=== PATIENT | female | born 1955 | race Caucasian/White ===

== ENCOUNTER 2019-04-05 12:57 | Inpatient (IN) ==
[2019-04-05 14:03] LABS: Hematocrit 37.6 % (37.0-47.0); Hemoglobin 11.6 gm/dL (12.5-16.0); Mean Cell Volume 116.8 fl (78-100); Mean Corpuscular Hgb Conc 30.9 g/dl (32-36); Mean Platelet Volume 10.4 fl (8-12.5); Neutrophil # 9.2 K/mm3 (1.3-6.0); Neutrophil % 79.6 % (42-75.0); Platelet Count 215 K/mm3 (150-450); Red Blood Count 3.22 M/mm3 (4.2-5.4); Red Cell Distribution Width 17.8 % (11.5-14.0); White Blood Count 11.6 K/mm3 (4.0-10.5)
[2019-04-05 14:51] LABS: Urine Appearance Slightly Cloudy (CLEAR); Urine Bacteria 1+; Urine Bilirubin 1 mg/dl (NEGATIVE); Urine Blood Negative /ul (NEGATIVE); Urine Color Dark Yellow; Urine Ketone 5 mg/dL (NEGATIVE); Urine Nitrite Negative (NEGATIVE); Urine Protein 15 mg/dL (NEGATIVE); Urine RBC None Seen /hpf (0-5); Urine Urobilinogen Normal (NORMAL); Urine WBC None Seen /hpf (0-5); Urine pH 5.5 pH (5.0-7.0)
[2019-04-05 14:52] LABS: Urine Hyaline Cast 0-5 /LPF
--- NOTE | 2019-04-05 15:20 | ERNOTE ---
Medical Problem HPI - Narrative Date of Service: 04/05/19 - General Chief Complaint: General Assessment Time Seen by Provider: 04/05/19 13:24 Source: patient Exam Limitations: no limitations - Immun/Allergies/Home Medications Immunizations: IMMUNIZATION HX Immunizations Up to Date Yes History of Influenza Vaccine No Hx Pneumococcal Vaccination No Allergies/Adverse Reactions: Allergies morphine Allergy (Verified 03/30/19 12:34) Penicillins Allergy (Verified 03/30/19 12:34) Home Medications: HOME MEDICATIONS ALPRAZolam [Xanax] 0.5 mg PO TID 05/02/15 [Last Taken Unknown] Omeprazole [Prilosec] 20 mg PO DAILY 05/02/15 [Last Taken Unknown] FLUoxetine HCL [Prozac] 40 mg PO DAILY 03/02/18 [Last Taken Unknown] Cyanocobalamin (Vitamin B-12) [Vitamin B12] 2,500 mcg PO DAILY 08/31/18 [Last Taken Unknown] Ferrous Sulfate [Iron] 325 mg PO DAILY 08/31/18 [Last Taken Unknown] fentaNYL [Fentanyl] 15 mcg TD Q48H 08/31/18 [Last Taken Unknown] oxyCODONE HCL [Oxycodone] 10 mg PO Q4H PRN 08/31/18 [Last Taken Unknown] Ondansetron [Zofran Odt] 8 mg PO Q4H PRN 03/30/19 [Last Taken Unknown] Prochlorperazine Maleate [Compazine] 10 mg PO TID 03/30/19 [Last Taken Unknown] - History of Present History Narrative: Patient presents to the ED with progressive generalized weakness and not eating or drinking much. Generalized weakness. Decreased urination. Feeling dehydrated. Had a head injury 2 days ago. No CP or SOB. Her stomach hudson but this is not acute. Timing: constant, getting worse Modifying Factors - (Improves): Present: other - nothing Modifying Factors - (Worsens): Present: other - nothing Review of Systems - Review of Systems Constitutional: Absent: fever Respiratory: Absent: shortness of breath Cardiology: Absent: chest pain Gastrointestinal/Abdominal: Present: See HPI Genitourinary: Present: decreased urinary output Neurological: Present: weakness Medical History (Updated 03/30/19 @ 16:39 by Rajesh Keenan MD) Depression History of chemotherapy PleurX Stomach cancer power port placement Surgical History: Surgical History (Updated 09/29/18 @ 18:25 by Nancy Wagoner RN) Hx of gastric bypass Hx of tubal ligation picc line placement. Family History: Family History (Updated 09/29/18 @ 18:25 by Nancy Wagoner RN) Other No pertinent family history Social History: Preferred Language [place] Smoking Status Current every day smoker Have you smoked in the past 12 Yes months Do you dip or chew tobacco No Alcohol Use none Drug Use none No Social History Section defined Physical Exam - Physical Exam General Appearance: Present: alert, other - chronically ill appearing Head Exam: Present: other - abrasion back of head. No otorrhea or rhinorrhea Eye Exam: Normal inspection: bilateral, PERRL: bilateral Ears, Nose, Throat: Present: dry mucous membranes Neck: Present: normal inspection, nontender Respiratory: Present: no respiratory distress, normal breath sounds, no accessory muscle use Cardiovascular/Chest: Present: normal peripheral pulses, tachycardia Gastrointestinal/Abdominal: Present: normal bowel sounds, nondistended, soft, other - mild epigastric tenderness Extremity Exam: Present: extremity edema Neurological Exam: Present: other - generalized weakness noted, no acute unilateral focal motor or sensory deficits Skin Exam: Present: normal color, warm/dry Progress - Results and Orders Patient's Lab Results:: I have reviewed the patient's lab results. - Vital Signs Patient's Vital Signs:: I have reviewed the patient's vital signs. Vital Signs: Vital Signs 04/05/19 13:04 Temperature 37 C Pulse Rate 122 H Respiratory Rate 18 Blood Pressure 80/47 L - X-Ray X-Ray #1 X-Ray: chest Interpretation: Interp. by me X-ray Comments: I reviewed official radiology report - CT/Ultrasound CT/Ultrasound Narrative: I reviewed official radiology report for CT head - Progress/Reassessment Chief Complaint: General Assessment Progress Note-Subjective: 04/05/19 16:40 Patient given IV fluids, IV dextrose. She is too weak to go home. They are thinking about goals of care. She is amenable to admission. Hyponatremia and dehydration. D/W Dr Kirkpatrick who will admit. Departure Clinical Impression: Dehydration, Head injury, Generalized weakness, Hyponatremia - Departure Disposition: Still a patient Condition: Fair
[2019-04-05] MEDS ORDERED: LORazepam 2 MG/ML DISP.SYRIN IV ONE (15:48)
[2019-04-05 16:31] LABS: Albumin * 0.7 gm/dl (3.4-5.0); Anion Gap 14.6 mmol/L (6.8-13.8); BUN/Creatinine Ratio 18.4 (9.0-21.6); Bilirubin, Total 0.8 mg/dL (0.0-1.1); Ca. Corrected For Albumin 9.4 mg/dL (8.4-10.2); Calcium * 7.1 mg/dL (7.9-10.9); Carbon Dioxide 21.6 mmol/L (24-32.6); Potassium 5.2 mmol/L (3.4-4.6)
[2019-04-05] MEDS ORDERED: DEXTROSE 50%-WATER 50 ML SYRG IV ONE (16:36)
[2019-04-05] MEDS ORDERED: NORMAL SALINE 1,000 ML IV ONE (16:39)
--- NOTE | 2019-04-05 17:14 | HP ---
Chief Complaint - Chief Complaint Date of Service: 04/05/19 Time of Service: 17:14 Chief Complaint: weakness History of Present Illness: Patient with past medical history of gastric cancer undergoing chemotherapy at [facility] [place] presented with a 3-day history of increased weakness. She was diagnosed in June of last year, and has been undergoing chemo therapy. Her previous chemotherapy regimen was not working, and was ávlarez ed within the last few weeks. She also was having uncontrolled nausea, and a scopolamine patch was recently started, which has led to some confusion. Her p.o. intake is been very poor. She wants to take a break from chemotherapy. Her sister also reports Eliquis was recently started for a possible blood clot in her lung. Her performs paracentesis at home via a drain in her side. While in the ED, she expressed wishes to hold off on any treatment, and the hospice team met with her. They would like to think more about hospice before actually pursuing hospice benefits. At the time of my exam, her blood pressure is in the 70s over 40s, and she is tachycardic to the 130s. She is having 3+ bilateral lower extremity edema. Discussed the severity of the situation, and she does not want to be resuscitated should her heart stop. Medical History (Updated 04/05/19 @ 17:14 by Senait Kirkpatrick DO) Depression History of chemotherapy PleurX Stomach cancer power port placement Surgical History: Surgical History (Updated 04/05/19 @ 17:14 by Senait Kirkpatrick DO) Hx of gastric bypass Hx of tubal ligation picc line placement. Family History: Family History (Updated 04/05/19 @ 17:25 by Lisa Thompson RN) Mother Hypertension Other No pertinent family history mother Social History: Preferred Language Taj[place] Smoking Status Current every day smoker Have you smoked in the past 12 Yes months Do you dip or chew tobacco No Alcohol Use none Drug Use none No Social History Section defined Review Of Systems (GEN) - Review of Systems Generalized/Overall Review: Present: Weakness, Malaise. Absent: Fever Respiratory: Present: Shortness of Breath - intermittent. Absent: Cough Cardiac: Present: Edema. Absent: Chest Pain Abdominal: Present: Nausea Genitourinary: Present: No Symptoms Reported Skin: Present: No Symptoms Reported Immunizations: IMMUNIZATION HX Immunizations Up to Date Yes History of Influenza Vaccine No Hx Pneumococcal Vaccination No Allergies/Adverse Reactions: Allergies Allergy/AdvReac Type Severity Reaction Status Date / Time morphine Allergy Verified 03/30/19 12:34 Penicillins Allergy Verified 03/30/19 12:34 Home Medications: HOME MEDICATIONS ALPRAZolam [Xanax] 0.5 mg PO TID 05/02/15 [Last Taken Unknown] Omeprazole [Prilosec] 20 mg PO DAILY 05/02/15 [Last Taken Unknown] FLUoxetine HCL [Prozac] 40 mg PO DAILY 03/02/18 [Last Taken Unknown] Cyanocobalamin (Vitamin B-12) [Vitamin B12] 2,500 mcg PO DAILY 08/31/18 [Last Taken Unknown] Ferrous Sulfate [Iron] 325 mg PO DAILY 08/31/18 [Last Taken Unknown] fentaNYL [Fentanyl] 15 mcg TD Q48H 08/31/18 [Last Taken Unknown] oxyCODONE HCL [Oxycodone] 10 mg PO Q4H PRN 08/31/18 [Last Taken Unknown] Ondansetron [Zofran Odt] 8 mg PO Q4H PRN 03/30/19 [Last Taken Unknown] Prochlorperazine Maleate [Compazine] 10 mg PO TID 03/30/19 [Last Taken Unknown] Exam - Exam Vital Signs: Vital Signs - Last Taken Temp 37 C 04/05/19 13:04 Pulse 122 H 04/05/19 13:04 Resp 18 04/05/19 13:04 BP 80/47 L 04/05/19 13:04 Constitutional: Present: Alert, Thin and frail, Looks Older than stated age Respiratory: Present: lungs clear, normal breath sounds Cardiovascular/Chest: Present: tachycardia - HR 130, other - port in her left chest wall Abdomen: Present: firm Extremity: Present: lower extremity edema - 3+ bilaterally almost to the knee Diagnostic Studies: Abnormal Lab Results 04/05/19 04/05/19 04/05/19 Range/Units 13:50 14:40 16:00 WBC 11.6 H (4.0-10.5) K/mm3 RBC 3.22 L (4.2-5.4) M/mm3 Hgb 11.6 L (12.5-16.0) gm/dL MCV 116.8 H (78-100) fl MCH 36.0 H (27-31) pg MCHC 30.9 L (32-36) g/dl RDW 17.8 H (11.5-14.0) % Immature Gran % (Auto) 0.60 H (0.001-0.429) % Immature Gran # (Auto) 0.07 H (0.000-0.0310) K/mm3 Neutrophils % 79.6 H (42-75.0) % Lymphocytes % 12.9 L (20-51) % Neutrophils # 9.2 H (1.3-6.0) K/mm3 Lymphocytes # 1.49 L (1.5-3.5) k/mm3 Sodium 129 L (132-142) mmol/L Plasma Sodium 128 L (130-142) mmol/L Potassium 5.2 H D (3.4-4.6) mmol/L Carbon Dioxide 21.6 L (24-32.6) mmol/L Anion Gap 14.6 H (6.8-13.8) mmol/L Est GFR (Non-Af Amer) 52 L D (60-130) mL/min Random Glucose 66 L (70-110) mg/dL Lactic Acid, Venous (0.4-2.0) mmol/L Calcium 7.1 L (7.9-10.9) mg/dL AST 57 H (0-48) U/L Alkaline Phosphatase 284 H (50-170) U/L Total Protein 4.0 L (6.2-8.2) gm/dL Albumin 0.7 L (3.4-5.0) gm/dl Urine Protein 15 H (NEGATIVE) mg/dL Urine Bilirubin 1 H (NEGATIVE) mg/dl Urine Ictotest Positive H (NEGATIVE) Urine Bacteria 1+ H (NONE) Hyaline Casts 0-5 H (NONE) /LPF 04/05/19 Range/Units 16:00 WBC (4.0-10.5) K/mm3 RBC (4.2-5.4) M/mm3 Hgb (12.5-16.0) gm/dL MCV (78-100) fl MCH (27-31) pg MCHC (32-36) g/dl RDW (11.5-14.0) % Immature Gran % (Auto) (0.001-0.429) % Immature Gran # (Auto) (0.000-0.0310) K/mm3 Neutrophils % (42-75.0) % Lymphocytes % (20-51) % Neutrophils # (1.3-6.0) K/mm3 Lymphocytes # (1.5-3.5) k/mm3 Sodium (132-142) mmol/L Plasma Sodium (130-142) mmol/L Potassium (3.4-4.6) mmol/L Carbon Dioxide (24-32.6) mmol/L Anion Gap (6.8-13.8) mmol/L Est GFR (Non-Af Amer) (60-130) mL/min Random Glucose (70-110) mg/dL Lactic Acid, Venous 3.4 H* (0.4-2.0) mmol/L Calcium (7.9-10.9) mg/dL AST (0-48) U/L Alkaline Phosphatase (50-170) U/L Total Protein (6.2-8.2) gm/dL Albumin (3.4-5.0) gm/dl Urine Protein (NEGATIVE) mg/dL Urine Bilirubin (NEGATIVE) mg/dl Urine Ictotest (NEGATIVE) Urine Bacteria (NONE) Hyaline Casts (NONE) /LPF Laboratory Results WBC 11.6 K/mm3 (4.0-10.5) H 04/05/19 13:50 RBC 3.22 M/mm3 (4.2-5.4) L 04/05/19 13:50 Hgb 11.6 gm/dL (12.5-16.0) L 04/05/19 13:50 Hct 37.6 % (37.0-47.0) 04/05/19 13:50 MCV 116.8 fl (78-100) H 04/05/19 13:50 MCH 36.0 pg (27-31) H 04/05/19 13:50 MCHC 30.9 g/dl (32-36) L 04/05/19 13:50 RDW 17.8 % (11.5-14.0) H 04/05/19 13:50 Plt Count 215 K/mm3 (150-450) 04/05/19 13:50 MPV 10.4 fl (8-12.5) 04/05/19 13:50 Immature Gran % (Auto) 0.60 % (0.001-0.429) H 04/05/19 13:50 Immature Gran # (Auto) 0.07 K/mm3 (0.000-0.0310) H 04/05/19 13:50 79.6 % (42-75.0) H 04/05/19 13:50 12.9 % (20-51) L 04/05/19 13:50 6.7 % (0.0-9) 04/05/19 13:50 0.0 % (0.0-3.0) 04/05/19 13:50 0.2 % (0.0-1.0) 04/05/19 13:50 Nucleated RBC % 0.0 k/mm3 (0-1) 04/05/19 13:50 9.2 K/mm3 (1.3-6.0) H 04/05/19 13:50 1.49 k/mm3 (1.5-3.5) L 04/05/19 13:50 0.8 k/mm3 (0.0-1.0) 04/05/19 13:50 0.0 k/mm3 (0.0-0.7) 04/05/19 13:50 Absolute Basophils 0.0 k/mm3 (0.0-0.1) 04/05/19 13:50 Sodium 129 mmol/L (132-142) L 04/05/19 16:00 128 mmol/L (130-142) L 04/05/19 16:00 Potassium 5.2 mmol/L (3.4-4.6) H D 04/05/19 16:00 Chloride 98 mmol/L (97-106) 04/05/19 16:00 Carbon Dioxide 21.6 mmol/L (24-32.6) L 04/05/19 16:00 14.6 mmol/L (6.8-13.8) H 04/05/19 16:00 BUN 21 mg/dL (3-23) 04/05/19 16:00 1.14 mg/dL (0.4-1.4) 04/05/19 16:00 Est GFR (Non-Af Amer) 52 mL/min (60-130) L D 04/05/19 16:00 18.4 (9.0-21.6) 04/05/19 16:00 66 mg/dL (70-110) L 04/05/19 16:00 3.4 mmol/L (0.4-2.0) H* 04/05/19 16:00 Calcium 7.1 mg/dL (7.9-10.9) L 04/05/19 16:00 Calcium Adj for Albumin 9.4 mg/dL (8.4-10.2) 04/05/19 16:00 0.8 mg/dL (0.0-1.1) 04/05/19 16:00 AST 57 U/L (0-48) H 04/05/19 16:00 ALT 52 U/L (19-67) 04/05/19 16:00 284 U/L (50-170) H 04/05/19 16:00 94 U/L (0-259) 04/05/19 16:00 4.0 gm/dL (6.2-8.2) L 04/05/19 16:00 0.7 gm/dl (3.4-5.0) L 04/05/19 16:00 Dark yellow 04/05/19 14:40 Slightly cloudy (CLEAR) 04/05/19 14:40 5.5 pH (5.0-7.0) 04/05/19 14:40 Ur Specific [place] 1.020 SP.GR. (1.005-1.010) 04/05/19 14:40 15 mg/dL (NEGATIVE) H 04/05/19 14:40 Negative mg/dL (NEGATIVE) 04/05/19 14:40 5 mg/dL (NEGATIVE) 04/05/19 14:40 Negative /ul (NEGATIVE) 04/05/19 14:40 Negative (NEGATIVE) 04/05/19 14:40 1 mg/dl (NEGATIVE) H 04/05/19 14:40 Positive (NEGATIVE) H 04/05/19 14:40 Prot Sulfosalicylic Acd Negative mg/dL (0) 04/05/19 14:40 Normal EU/dl (NORMAL) 04/05/19 14:40 Ur Leukocyte Esterase Negative /ul (NEGATIVE) 04/05/19 14:40 None seen /hpf (0-5) 04/05/19 14:40 None seen /hpf (0-5) 04/05/19 14:40 Ur Epithelial Cells Trace /hpf (0-5) 04/05/19 14:40 1+ (NONE) H 04/05/19 14:40 Hyaline Casts 0-5 /LPF (NONE) H 04/05/19 14:40 Culture to follow 04/05/19 14:40 Assessment/Plan - Assessment/Plan (1) Hypotension Assessment: Her blood pressure is significantly low, will give a 500 cc bolus, however with her lower extremity edema and ascites, she may not keep that fluid intravascularly. Her albumin is only 0.7, which contributes to her edema. Will start Levophed to keep her map greater than 65. She reports she does not want to be resuscitated should her heart stop. Procalcitonin and blood cultures pending. She has an elevated lactate at 3.4. WBC 11, which is not high, but I would expect a lower WBC count for someone receiving chemo. Urine culture pending. With her repeat paracentesis, she has a higher infection risk. Blood cultures, procalcitonin pending. Will treat her for sepsis and start vancomycin and cefepime. If she does not respond to fluids and levophed, will administer albumin, and may add a second pressor. Poor prognosis. Problem: Acute (2) Gastric cancer Assessment: Suspected gastric cancer, for which she has been undergoing chemo. Abdomen firm to palpation. She recently had a chemo change, because she was not responding to the previous chemo. Problem: Acute (3) Electrolyte disturbance Assessment: Hyperkalemia, hyponatremia. will administer fluids. Problem: Acute
[2019-04-05] MEDS ORDERED: NORMAL SALINE 500 ML IV ONE (17:44)
[2019-04-05] MEDS ORDERED: ONDANSETRON 8 MG TAB.RAPDIS PO PRN (17:48)
[2019-04-05] MEDS ORDERED: FENTANYL TD SCH (18:00)
[2019-04-05] MEDS: NOREPINEPHRINE BITARTRATE 4 MG in DEXTROSE 5 % IN WATER 496 ML IV PRN ×2 (18:40)
[2019-04-05] MEDS ORDERED: VANCOMYCIN HCL 1.5 GM in DEXTROSE 5 % IN WATER 500 ML IV SCH ×2 (19:00)
[2019-04-05] MEDS: PROCHLORPERAZINE MALEATE 10 MG TABLET PO SCH (19:05)
[2019-04-05] MEDS: CEFEPIME HCL 1 GM in DEXTROSE 5 % IN WATER 100 ML IV SCH ×2 (19:05)
[2019-04-05] MEDS: oxyCODONE HCL 5 MG TABLET PO PRN (20:20)
[2019-04-05] MEDS ORDERED: NORMAL SALINE 250 ML IV ONE (20:31)
[2019-04-05] MEDS ORDERED: PROMETHAZINE HCL 25 MG TABLET PO PRN (20:33)
--- NOTE | 2019-04-06 00:17 | PN ---
Angi Note - Interim Date: 04/06/19 Time: 00:09 Narrative: 04/06/19 00:09 Assessed patient for 6 hour sepsis assessment. Patient's lactate initially improved to 3.1, however last 2 checks have been 3.5 and 3.4. Her Levophed dose has been increased to 14 mcg/min, and her blood pressure map remains around 65. She is not responding to treatment. Discussed with her, her , and daughter treatment plan. She had stated during my admission H&P that she did not want to be resuscitated, however when asked the same question of nursing staff, she became tearful and could not answer. She is currently a full code because of this. Discussed the severity of the situation, and recommend t ransfer to another facility if she would like to be a full code with aggressive cancer treatment. She said tonight that she does not want to be transferred. She and her family are currently unable to make a decision regarding transfer or hospice care. Discussed the possibility that she may go into a dysrhythmia or decreased mental status. PE unchanged from earlier. She is not displaying worsening fluid overload. Vitals: BP 93/54, HR 124, RR 18 Const: NAD Resp: no increase effort, CTAB, room air CV: tachycardic to 124 Abdomen: Firm, nodular. Drain in RLQ. Ext: 3+ bilateral lower extremity edema A/P: Peritoneal carcinomatosis with unknown primary: She has not responded to chemo. Her most recent chemo treatment was mid February, and caused increased weakness. She and her family are unsure at this time about treatment plans, but have been made aware she is not likely to survive this. They are considering transfer to facility with an ICU. Sepsis: Decreased BP, tachycardia. Procalcitonin mildly elevated, lactate elevated at 3.5. No definite infectious source per UA or CXR. She gets home paracentesis every other day, which is possible source. If family would like, we can do paracentesis and check the fluid for infection. She is next due for paracentesis later today. Continue vancomycin and cefepime. Continue fluids, and closely monitor for worsening fluid overload. Hypoalbuminemia - Previously on TPN for poor nutrition. Her albumin is extremely low at 0.7. This is contributing to her edema and ascites. If she and her family would like further treatment and she is unable to maintain po nutrition, recommend restarting TPN, but also recommend transfer to another facility for this. 04/06/19 00:28
[2019-04-06] MEDS: oxyCODONE HCL 5 MG TABLET PO PRN ×3 (00:21→09:50)
[2019-04-06] MEDS: NORMAL SALINE 1,000 ML IV PRN ×2 (00:47→07:29)
[2019-04-06] MEDS: NOREPINEPHRINE BITARTRATE 4 MG in DEXTROSE 5 % IN WATER 496 ML IV PRN ×4 (03:08→08:28)
[2019-04-06] MEDS: CEFEPIME HCL 1 GM in DEXTROSE 5 % IN WATER 100 ML IV SCH ×2 (05:51)
[2019-04-06 05:54] LABS: Hemoglobin 11.9 gm/dL (12.5-16.0); Mean Cell Volume 110.4 fl (78-100); Mean Corpuscular Hemoglobin 36.5 pg (27-31); Mean Corpuscular Hgb Conc 33.1 g/dl (32-36); Mean Platelet Volume 10.9 fl (8-12.5); Neutrophil # 6.7 K/mm3 (1.3-6.0); Neutrophil % 66.1 % (42-75.0); Platelet Count 271 K/mm3 (150-450); Red Blood Count 3.26 M/mm3 (4.2-5.4); Red Cell Distribution Width 17.5 % (11.5-14.0); White Blood Count 10.2 K/mm3 (4.0-10.5)
[2019-04-06 05:56] LABS: Albumin * 0.8 gm/dl (3.4-5.0); Anion Gap 13.9 mmol/L (6.8-13.8); Bilirubin, Total 0.7 mg/dL (0.0-1.1); Calcium * 6.8 mg/dL (7.9-10.9); Carbon Dioxide 21.5 mmol/L (24-32.6); Potassium 4.4 mmol/L (3.4-4.6); Total Protein 4.1 gm/dL (6.2-8.2)
--- NOTE | 2019-04-06 06:11 | PN ---
Subjective - Date and Time Seen Date: 04/06/19 Time: 06:09 Subjective Narrative: Patient seen and examined with and daughter at bedside. She is more alert this morning, and her feels like she's doing much better. Her nausea has improved. They have decided they would like to transfer to a larger facility. Objective - Review of Systems Generalized/Overall Review: Reports: Weakness. Denies: Fever Respiratory: Denies: Cough Cardiac: Reports: Edema. Denies: Chest Pain Abdominal: Reports: Nausea Genitourinary Symptoms: Reports: No Symptoms Reported Neurological: Reports: Weakness Skin: Reports: No Symptoms Reported - Vitals Vitals: Last Vital Signs Temp 36.8 C 04/05/19 22:50 Pulse 125 H 04/06/19 06:00 Resp 18 04/06/19 06:00 BP 100/68 04/06/19 06:07 Pulse Ox 99 04/06/19 06:00 - Abnormal Lab Findings Abnormal Lab Findings: Abnormal Lab Results 04/05/19 04/05/19 04/05/19 Range/Units 13:50 14:40 16:00 WBC 11.6 H (4.0-10.5) K/mm3 RBC 3.22 L (4.2-5.4) M/mm3 Hgb 11.6 L (12.5-16.0) gm/dL Hct (37.0-47.0) % MCV 116.8 H (78-100) fl MCH 36.0 H (27-31) pg MCHC 30.9 L (32-36) g/dl RDW 17.8 H (11.5-14.0) % Immature Gran % (Auto) 0.60 H (0.001-0.429) % Immature Gran # (Auto) 0.07 H (0.000-0.0310) K/mm3 Neutrophils % 79.6 H (42-75.0) % Lymphocytes % 12.9 L (20-51) % Monocytes % (0.0-9) % Neutrophils # 9.2 H (1.3-6.0) K/mm3 Lymphocytes # 1.49 L (1.5-3.5) k/mm3 Monocytes # (0.0-1.0) k/mm3 Sodium 129 L (132-142) mmol/L Plasma Sodium 128 L (130-142) mmol/L Potassium 5.2 H D (3.4-4.6) mmol/L Carbon Dioxide 21.6 L (24-32.6) mmol/L Anion Gap 14.6 H (6.8-13.8) mmol/L Est GFR (Non-Af Amer) 52 L D (60-130) mL/min Random Glucose 66 L (70-110) mg/dL Lactic Acid, Venous (0.4-2.0) mmol/L Calcium 7.1 L (7.9-10.9) mg/dL AST 57 H (0-48) U/L Alkaline Phosphatase 284 H (50-170) U/L Total Protein 4.0 L (6.2-8.2) gm/dL Albumin 0.7 L (3.4-5.0) gm/dl Procalcitonin (0.05-0.50) ng/mL Urine Protein 15 H (NEGATIVE) mg/dL Urine Bilirubin 1 H (NEGATIVE) mg/dl Urine Ictotest Positive H (NEGATIVE) Urine Bacteria 1+ H (NONE) Hyaline Casts 0-5 H (NONE) /LPF 04/05/19 04/05/19 04/05/19 Range/Units 16:00 16:00 19:00 WBC (4.0-10.5) K/mm3 RBC (4.2-5.4) M/mm3 Hgb (12.5-16.0) gm/dL Hct (37.0-47.0) % MCV (78-100) fl MCH (27-31) pg MCHC (32-36) g/dl RDW (11.5-14.0) % Immature Gran % (Auto) (0.001-0.429) % Immature Gran # (Auto) (0.000-0.0310) K/mm3 Neutrophils % (42-75.0) % Lymphocytes % (20-51) % Monocytes % (0.0-9) % Neutrophils # (1.3-6.0) K/mm3 Lymphocytes # (1.5-3.5) k/mm3 Monocytes # (0.0-1.0) k/mm3 Sodium (132-142) mmol/L Plasma Sodium (130-142) mmol/L Potassium (3.4-4.6) mmol/L Carbon Dioxide (24-32.6) mmol/L Anion Gap (6.8-13.8) mmol/L Est GFR (Non-Af Amer) (60-130) mL/min Random Glucose (70-110) mg/dL Lactic Acid, Venous 3.4 H* 3.1 H* (0.4-2.0) mmol/L Calcium (7.9-10.9) mg/dL AST (0-48) U/L Alkaline Phosphatase (50-170) U/L Total Protein (6.2-8.2) gm/dL Albumin (3.4-5.0) gm/dl Procalcitonin 0.76 H (0.05-0.50) ng/mL Urine Protein (NEGATIVE) mg/dL Urine Bilirubin (NEGATIVE) mg/dl Urine Ictotest (NEGATIVE) Urine Bacteria (NONE) Hyaline Casts (NONE) /LPF 04/05/19 04/05/19 04/06/19 Range/Units 22:20 23:46 05:38 WBC (4.0-10.5) K/mm3 RBC 3.26 L (4.2-5.4) M/mm3 Hgb 11.9 L (12.5-16.0) gm/dL Hct 36.0 L (37.0-47.0) % MCV 110.4 H (78-100) fl MCH 36.5 H (27-31) pg MCHC (32-36) g/dl RDW 17.5 H (11.5-14.0) % Immature Gran % (Auto) (0.001-0.429) % Immature Gran # (Auto) 0.04 H (0.000-0.0310) K/mm3 Neutrophils % (42-75.0) % Lymphocytes % (20-51) % Monocytes % 10.3 H (0.0-9) % Neutrophils # 6.7 H (1.3-6.0) K/mm3 Lymphocytes # (1.5-3.5) k/mm3 Monocytes # 1.1 H (0.0-1.0) k/mm3 Sodium (132-142) mmol/L Plasma Sodium (130-142) mmol/L Potassium (3.4-4.6) mmol/L Carbon Dioxide (24-32.6) mmol/L Anion Gap (6.8-13.8) mmol/L Est GFR (Non-Af Amer) (60-130) mL/min Random Glucose (70-110) mg/dL Lactic Acid, Venous 3.5 H* 3.4 H* (0.4-2.0) mmol/L Calcium (7.9-10.9) mg/dL AST (0-48) U/L Alkaline Phosphatase (50-170) U/L Total Protein (6.2-8.2) gm/dL Albumin (3.4-5.0) gm/dl Procalcitonin (0.05-0.50) ng/mL Urine Protein (NEGATIVE) mg/dL Urine Bilirubin (NEGATIVE) mg/dl Urine Ictotest (NEGATIVE) Urine Bacteria (NONE) Hyaline Casts (NONE) /LPF 04/06/19 Range/Units 05:38 WBC (4.0-10.5) K/mm3 RBC (4.2-5.4) M/mm3 Hgb (12.5-16.0) gm/dL Hct (37.0-47.0) % MCV (78-100) fl MCH (27-31) pg MCHC (32-36) g/dl RDW (11.5-14.0) % Immature Gran % (Auto) (0.001-0.429) % Immature Gran # (Auto) (0.000-0.0310) K/mm3 Neutrophils % (42-75.0) % Lymphocytes % (20-51) % Monocytes % (0.0-9) % Neutrophils # (1.3-6.0) K/mm3 Lymphocytes # (1.5-3.5) k/mm3 Monocytes # (0.0-1.0) k/mm3 Sodium 129 L (132-142) mmol/L Plasma Sodium 129 L (130-142) mmol/L Potassium (3.4-4.6) mmol/L Carbon Dioxide 21.5 L (24-32.6) mmol/L Anion Gap 13.9 H (6.8-13.8) mmol/L Est GFR (Non-Af Amer) 48 L (60-130) mL/min Random Glucose 127 H D (70-110) mg/dL Lactic Acid, Venous (0.4-2.0) mmol/L Calcium 6.8 L (7.9-10.9) mg/dL AST (0-48) U/L Alkaline Phosphatase 295 H (50-170) U/L Total Protein 4.1 L (6.2-8.2) gm/dL Albumin 0.8 L (3.4-5.0) gm/dl Procalcitonin (0.05-0.50) ng/mL Urine Protein (NEGATIVE) mg/dL Urine Bilirubin (NEGATIVE) mg/dl Urine Ictotest (NEGATIVE) Urine Bacteria (NONE) Hyaline Casts (NONE) /LPF - Exam Constitutional: Present: Alert, Oriented x3, Looks Older than stated age Respiratory: Present: lungs clear, no respiratory distress Cardiovascular/Chest: Present: tachycardia - 121 Abdomen: Present: firm, mass palpable Extremity: Present: lower extremity edema - 3+ bilaterally, similar to yesterday Eye contact: Present: cooperative Cauti Physician Documentation - Urinary Catheter Management Urethral (Atkins) Urethral Indwelling: Yes Date of Insertion: 04/05/19 Time of Insertion: 20:58 Assessment/Plan - Problems/Diagnosis (1) Hypotension Problem: Acute Narrative: Secondary to potential sepsis or chronic malnutrition. Improved with levophed, and will wean as tolerated. She was given gentle hydration overnight. Unable to aggressively fluid resuscitate due to her ascites and lower extremity edema. With her albumin is low as it is, much of the fluid is likely to third space. Family reports her baseline BP is low. (2) Sepsis associated hypotension Problem: Suspected Narrative: She is tachycardic with low blood pressure, with a lactate of 3.4. UA and CXR were not positive for infection. Blood and urine cultures pending. She gets paracentesis at home every other day, which is a possible source of infection. She has been getting vancomycin and cefepime since admission. The severity of her situation has been discussed with family members multiple times, and they would like transfer to another facility to an ICU. Her levophed dose is decreasing, down to 12 from 14 mcg/min. She has significant lower extremity swelling on exam, and with her ascites, she has been difficult to fluid resuscitate. She has been afebrile, and WBC of 11.6 improved to 10.2. (3) Peritoneal carcinomatosis Problem: Chronic Narrative: Per oncology note from October 2018, her primary site is unknown, but thought to be pancreatobiliary an upper GI origin. She does her chemo treatment in [place]. She was on chemo, and switched regimens in February because her previous regimen is ineffective. Her sister reports she had acute weakness after her chemo regimen was changed in February. Her p.o. intake has been poor, and albumin today is 0.8, up from 0.7 yesterday. She had been on TPN previously. She has been eating a small amount since admission. The hospice team did speak to her and her family yesterday, but they wanted more time to consider treatment vs palliative care. On admission, she originally said she wanted to be a DNR, but then was unable to confirm this later. Since she is pursuing further treatment and not palliative care, recommend transfer to an ICU at a larger facility. She feels better this morning, and family is hopeful. Transfer process is pending. (4) Electrolyte disturbance Problem: Acute Narrative: Sodium of 129, similar to yesterday. Continue gentle rehydration with normal saline. (5) Tachycardia Problem: Acute Narrative: Currently secondary to hypotension and potential sepsis. (6) Hypoalbuminemia due to protein-calorie malnutrition Problem: Acute Narrative: Her p.o. intake has been very low. She had been on TPN in the past. If she is unable to maintain p.o. nutrition, would recommend restarting TPN. She has been eating during her stay here, so this is not needed currently. (7) Stage 3 acute kidney injury Problem: Acute Narrative: Her GFR is 48, which is an acute change in her renal function. It was 76 earlier this month. (8) High risk medication use Problem: Chronic Narrative: Her sister stated yesterday that she was on Eliquis for potential pulmonary embolism. Will need to verify this with her pharmacy.
[2019-04-06 06:13] LABS: BUN/Creatinine Ratio 17.2 (9.0-21.6)
--- NOTE | 2019-04-06 07:58 | DS ---
Transfer Discharge Summary - Diagnosis(s)/Problems (1) Hypotension Problem: Acute (2) Sepsis associated hypotension Problem: Suspected (3) Peritoneal carcinomatosis Problem: Chronic (4) Electrolyte disturbance Problem: Acute (5) Tachycardia Problem: Acute (6) Hypoalbuminemia due to protein-calorie malnutrition Problem: Acute (7) Stage 3 acute kidney injury Problem: Acute (8) High risk medication use Problem: Chronic - Course Description of Stay: Per oncology note from October 2018, patient's primary site is unknown, but thought to be pancreatobiliary and upper GI origin. She does her chemo treatment in [place]. She was on chemo, and switched regimens in February because her previous regimen was ineffective. Her sister reports she had acute weakness after her chemo regimen was changed in February. Her p.o. intake has been poor, and albumin today is 0.8, up from 0.7 yesterday. She had been on TPN previously. She has been eating a small amount since admission. Her home pain medicine regimen was reduced, and trazadone held for her decreased mentation. The hospice team did speak to her and her family yesterday, but they wanted more time to consider treatment vs palliative care. On admission, she originally said she wanted to be a DNR, but then was unable to confirm this later. Since she is pursuing further treatment and not palliative care, recommend transfer to an ICU at a larger facility. She feels better this morning, and family is hopeful. She was accepted at [facility], and transfer process initiated. She has been hypotensive since admission, thought to be secondary to potential sepsis or chronic malnutrition. Improved with levophed. She was given gentle hydration overnight. Unable to aggressively fluid resuscitate due to her ascites and lower extremity edema. With her albumin is low as it is, much of the fluid is likely to third space. Family reports her baseline BP is low. She is tachycardic with low blood pressure, with a lactate of 3.4. Lactate has not changed since admission on multiple checks. UA and CXR were not positive for infection. Blood and urine cultures pending. She gets paracentesis at home every other day, which is a possible source of infection. She has been getting vancomycin and cefepime since admission. The severity of her situation has been discussed with family members multiple times, and they would like transfer to another facility to an ICU. Her levophed dose is decreasing, down to 12 from 14 mcg/min. She has significant lower extremity swelling on exam, and with her ascites, she has been difficult to fluid resuscitate. She has been afebrile, and WBC of 11.6 improved to 10.2. Hypoalbuminemia - Albumin of 0.8 this morning. Her p.o. intake has been very low. She had been on TPN in the past. If she is unable to maintain p.o. nutrition, would recommend restarting TPN. She has been eating during her stay here, so this is not needed currently. Stage III FRANSISCO - Her GFR is 48, which is an acute change in her renal function. It was 76 earlier this month. On admission, her sister reported she was on Eliquis for potential pulmonary embolism. Her nurse called the [facility], who verified she did have a PE in December, still present in February. She has not been taking her Eliquis because, per her , it is difficult to get her to take her meds. Procedures Performed: none - Results and Findings Results and Findings: Laboratory Results - last 24 hr 04/05/19 04/05/19 04/05/19 13:50 14:40 16:00 WBC 11.6 H RBC 3.22 L Hgb 11.6 L Hct 37.6 MCV 116.8 H MCH 36.0 H MCHC 30.9 L RDW 17.8 H Plt Count 215 MPV 10.4 Immature Gran % (Auto) 0.60 H Immature Gran # (Auto) 0.07 H Neutrophils % 79.6 H Lymphocytes % 12.9 L Monocytes % 6.7 Eosinophils % 0.0 Basophils % 0.2 Nucleated RBC % 0.0 Neutrophils # 9.2 H Lymphocytes # 1.49 L Monocytes # 0.8 Eosinophils # 0.0 Absolute Basophils 0.0 Sodium 129 L Plasma Sodium 128 L Potassium 5.2 H D Chloride 98 Carbon Dioxide 21.6 L Anion Gap 14.6 H BUN 21 Creatinine 1.14 Est GFR (Non-Af Amer) 52 L D BUN/Creatinine Ratio 18.4 Random Glucose 66 L Lactic Acid, Venous Calcium 7.1 L Calcium Adj for Albumin 9.4 Total Bilirubin 0.8 AST 57 H ALT 52 Alkaline Phosphatase 284 H Creatine Kinase 94 Total Protein 4.0 L Albumin 0.7 L Procalcitonin Urine Color Dark yellow Urine Appearance Slightly cloudy Urine pH 5.5 Ur Specific [place] 1.020 Urine Protein 15 H Urine Glucose (UA) Negative Urine Ketones 5 Urine Blood Negative Urine Nitrate Negative Urine Bilirubin 1 H Urine Ictotest Positive H Prot Sulfosalicylic Acd Negative Urine Urobilinogen Normal Ur Leukocyte Esterase Negative Urine RBC None seen Urine WBC None seen Ur Epithelial Cells Trace Urine Bacteria 1+ H Hyaline Casts 0-5 H Urine Culture Comments Culture to follow 04/05/19 04/05/19 04/05/19 16:00 16:00 19:00 WBC RBC Hgb Hct MCV MCH MCHC RDW Plt Count MPV Immature Gran % (Auto) Immature Gran # (Auto) Neutrophils % Lymphocytes % Monocytes % Eosinophils % Basophils % Nucleated RBC % Neutrophils # Lymphocytes # Monocytes # Eosinophils # Absolute Basophils Sodium Plasma Sodium Potassium Chloride Carbon Dioxide Anion Gap BUN Creatinine Est GFR (Non-Af Amer) BUN/Creatinine Ratio Random Glucose Lactic Acid, Venous 3.4 H* 3.1 H* Calcium Calcium Adj for Albumin Total Bilirubin AST ALT Alkaline Phosphatase Creatine Kinase Total Protein Albumin Procalcitonin 0.76 H Urine Color Urine Appearance Urine pH Ur Specific [place] Urine Protein Urine Glucose (UA) Urine Ketones Urine Blood Urine Nitrate Urine Bilirubin Urine Ictotest Prot Sulfosalicylic Acd Urine Urobilinogen Ur Leukocyte Esterase Urine RBC Urine WBC Ur Epithelial Cells Urine Bacteria Hyaline Casts Urine Culture Comments 04/05/19 04/05/19 04/06/19 22:20 23:46 05:38 WBC 10.2 RBC 3.26 L Hgb 11.9 L Hct 36.0 L MCV 110.4 H MCH 36.5 H MCHC 33.1 RDW 17.5 H Plt Count 271 MPV 10.9 Immature Gran % (Auto) 0.40 Immature Gran # (Auto) 0.04 H Neutrophils % 66.1 Lymphocytes % 22.4 Monocytes % 10.3 H Eosinophils % 0.7 Basophils % 0.1 Nucleated RBC % 0.0 Neutrophils # 6.7 H Lymphocytes # 2.28 Monocytes # 1.1 H Eosinophils # 0.1 Absolute Basophils 0.0 Sodium Plasma Sodium Potassium Chloride Carbon Dioxide Anion Gap BUN Creatinine Est GFR (Non-Af Amer) BUN/Creatinine Ratio Random Glucose Lactic Acid, Venous 3.5 H* 3.4 H* Calcium Calcium Adj for Albumin Total Bilirubin AST ALT Alkaline Phosphatase Creatine Kinase Total Protein Albumin Procalcitonin Urine Color Urine Appearance Urine pH Ur Specific [place] Urine Protein Urine Glucose (UA) Urine Ketones Urine Blood Urine Nitrate Urine Bilirubin Urine Ictotest Prot Sulfosalicylic Acd Urine Urobilinogen Ur Leukocyte Esterase Urine RBC Urine WBC Ur Epithelial Cells Urine Bacteria Hyaline Casts Urine Culture Comments 04/06/19 04/06/19 05:38 06:40 WBC RBC Hgb Hct MCV MCH MCHC RDW Plt Count MPV Immature Gran % (Auto) Immature Gran # (Auto) Neutrophils % Lymphocytes % Monocytes % Eosinophils % Basophils % Nucleated RBC % Neutrophils # Lymphocytes # Monocytes # Eosinophils # Absolute Basophils Sodium 129 L Plasma Sodium 129 L Potassium 4.4 Chloride 98 Carbon Dioxide 21.5 L Anion Gap 13.9 H BUN 21 Creatinine 1.22 Est GFR (Non-Af Amer) 48 L BUN/Creatinine Ratio 17.2 Random Glucose 127 H D Lactic Acid, Venous 3.4 H* Calcium 6.8 L Calcium Adj for Albumin 9.0 Total Bilirubin 0.7 AST 30 ALT 51 Alkaline Phosphatase 295 H Creatine Kinase Total Protein 4.1 L Albumin 0.8 L Procalcitonin Urine Color Urine Appearance Urine pH Ur Specific [place] Urine Protein Urine Glucose (UA) Urine Ketones Urine Blood Urine Nitrate Urine Bilirubin Urine Ictotest Prot Sulfosalicylic Acd Urine Urobilinogen Ur Leukocyte Esterase Urine RBC Urine WBC Ur Epithelial Cells Urine Bacteria Hyaline Casts Urine Culture Comments - Medications Medications: Active Medications Norepinephrine Bitartrate 4 mg (/ Dextrose/Water) 500 mls @ 3.75 mls/hr IV TITR PRN; Protocol PRN Reason: Hypotension Stop: 05/05/19 17:46 Last Titration: 04/06/19 06:21 Dose: 12 mcg/min, 90 mls/hr Documented by: Vancomycin HCl 1.5 gm/ (Dextrose/Water) 500 mls @ 250 mls/hr IV Q24H SEBASTIAN; Protocol Stop: 05/05/19 19:01 Last Infusion: 04/05/19 21:38 Dose: Infused Documented by: Cefepime HCl 1 gm/ Dextrose/ (Water) 100 mls @ 200 mls/hr IV Q12H SEBASTIAN; Protocol Stop: 05/05/19 18:01 Last Infusion: 04/06/19 06:21 Dose: Infused Documented by: Sodium Chloride (Sodium Chloride 0.9%) 1,000 mls @ 150 mls/hr IV .Q6H40M PRN PRN Reason: HYDRATION Stop: 05/06/19 00:47 Last Admin: 04/06/19 00:47 Dose: 150 mls/hr Documented by: Ondansetron HCl (Zofran Odt) 8 mg PO Q4H PRN PRN Reason: Nausea Stop: 05/05/19 17:49 Last Admin: 04/06/19 06:55 Dose: 8 mg Documented by: Oxycodone HCl (Oxycodone) 10 mg PO Q4H PRN PRN Reason: Severe Pain (pain scale 7-10) Stop: 05/05/19 17:49 Last Admin: 04/06/19 05:50 Dose: 10 mg Documented by: Prochlorperazine Maleate (Compazine) 10 mg PO TID [facility] Stop: 05/05/19 18:01 Last Admin: 04/05/19 19:05 Dose: 10 mg Documented by: Discontinued Medications Dextrose/Water (Dextrose 50%/Water Syringe) 25 ml IV ONCE ONE Stop: 04/05/19 16:37 Last Admin: 04/05/19 16:41 Dose: 25 ml Documented by: Sodium Chloride (Sodium Chloride 0.9%) 1,000 mls @ 150 mls/hr IV .Q6H40M ONE Stop: 04/05/19 23:18 Last Infusion: 04/06/19 00:30 Dose: Infused Documented by: Sodium Chloride (Sodium Chloride 0.9%) 500 mls @ 999 mls/hr IV .Q31M ONE Stop: 04/05/19 18:14 Last Infusion: 04/05/19 19:00 Dose: Infused Documented by: Sodium Chloride (Sodium Chloride 0.9%) 250 mls @ 999 mls/hr IV .Q16M ONE Stop: 04/05/19 20:46 Last Infusion: 04/05/19 20:51 Dose: Infused Documented by: Lorazepam (Ativan) 0.5 mg IV ONCE ONE Stop: 04/05/19 15:49 Last Admin: 04/05/19 16:47 Dose: 0.5 mg Documented by: Non-Formulary Medication (Fentanyl [Fentanyl]) 15 mcg TD Q48H [facility] Stop: 05/05/19 18:01 Last Admin: 04/05/19 19:06 Dose: Not Given Documented by: - Disposition Disposition: Short Term Hospital Inpatient Condition: Poor
[2019-04-06] MEDS: PROCHLORPERAZINE MALEATE 10 MG TABLET PO SCH (08:48)
[2019-04-06] MEDS ORDERED: fentaNYL 75 MCG PATCH.TD72 TD SCH (09:00)
[2019-04-06] MEDS ORDERED: APIXABAN 5 MG TABLET PO SCH (09:30)
[2019-04-06 10:32] VITALS: BP 97/64
== END 2019-04-06 10:25 | disposition short-term general hospital (02) | DRG 872 ==
LOC: MS 12:57 → ER 12:57 → OBSVTOIN 16:38 → SCU 18:19
PROVIDERS: ADMIT Family Medicine; ATTEND Family Medicine
CPT/HCPCS: 36415; 70450; 71010; 71045; 80053; 81001; 82550; 83605; 84145; 85025; 87040; 87077; 87086; 87186; 99284